=== PATIENT | male | born 1955 | race Caucasian/White ===

== ENCOUNTER 2020-05-03 12:51 | Outpatient (RCR) | payer MEDICARE, MEDICAID, SELFPAY | END 2020-05-07 11:41 | disposition home or self-care (01) | LOC: HO.WCC 12:51 | PROVIDERS: PCP Nurse Practitioner Adult Health; Visit Provider Physician Assistant | DX: L03.116 Cellulitis of left lower limb (principal); L03.115 Cellulitis of right lower limb; Z79.2 Long term (current) use of antibiotics | CPT/HCPCS: 99212 ==